=== PATIENT | female | born 1995 | race Two or more races ===

== ENCOUNTER 2022-11-26 15:49 | Emergency (ER) | payer OTHER ==
[~2022-11-26] VITALS: Ht 160 cm; Wt 88.5 kg
== END 2022-11-26 21:50 | disposition home or self-care (01) ==
LOC: ER 15:49
DX: S01.511A Laceration without foreign body of lip, initial encounter (principal); W05.1XXA Fall from non-moving nonmotorized scooter, initial encounter; Y93.9 Activity, unspecified; Y92.9 Unspecified place or not applicable; Y99.9 Unspecified external cause status